=== PATIENT | female | born 1985 | race Caucasian/White ===

== ENCOUNTER → 2020-01-22 | Outpatient (CLI) | payer OTHER ==
--- NOTE | 2020-01-22 15:16 | RAD ---
MRI Lumbar Spine without contrast History: Low back pain for 4 months, bilateral leg radiculopathy, numbness Technique: Multiplanar, multi sequential noncontrast MR imaging was performed of the lumbar spine. Comparison: None Findings: Lumbar vertebral body stature and AP alignment are maintained. Intervertebral disc spaces are maintained. Conus terminates near L1-2. There is no significant marrow edema. L1-L2: Spinal canal and neural foramina are adequate. L2-L3: Spinal canal and neural foramina are adequate. L3-L4: Spinal canal and neural foramina are adequate. L4-L5: Neural foramina and spinal canal are adequate. There is mild facet hypertrophic change, minimal fluid in the facet articulations bilaterally. L5-S1: There is mild facet degenerative change and buckling of the ligamentum flavum. Spinal canal and neural foramina are adequate. Impression: 1. There is no lumbar spinal stenosis or neural foramina compromise. There is mild facet degenerative change of the inferior lumbar spine. Electronically signed by: Toni Goldstein MD (01/22/2020 3:13 PM) [id number]
== END | disposition home or self-care (01) ==
LOC: MRI 14:16
PROVIDERS: ATTEND Family Medicine
DX: M47.26 Other spondylosis with radiculopathy, lumbar region (principal); M89.38 Hypertrophy of bone, other site
CPT/HCPCS: 72148